=== PATIENT | male | born 1965 | race Caucasian/White ===

== ENCOUNTER 2019-12-30 03:19 | Inpatient (IN) | payer MEDICAID ==
[~2019-12-30] VITALS: Ht 172.7 cm; Wt 86.2 kg
[2019-12-30] MEDS ORDERED: ASPIRIN 81MG TABLET PO NR (05:15)
[2019-12-30 05:35] LABS: BASOPHILS % 1.2 % (0.0-2.0); EOSINOPHILS % 4.2 % (0.0-5.0); HEMATOCRIT. 43.5 % (42.0-52.0); HEMOGLOBIN. 14.8 g/dL (14.0-18.0); LYMPHOCYTES % 27.3 % (20.0-50.0); MEAN CORPUSCULAR HEMOGLOBIN 29.8 pg (28.0-32.0); MEAN CORPUSCULAR VOLUME 87.6 fL (80.0-94.0); MEAN PLATELET VOLUME 6.9 fl (7.4-10.4); MONOCYTES % 7.3 % (2.0-8.0); PLATELET 264 x1000/uL (130-400); RED BLOOD CELL COUNT 4.97 mill/uL (4.7-6.1); RED CELL DISTRIBUTION WIDTH 15.1 % (11.6-14.6)
[2019-12-30] MEDS: NITROGLYCERIN OINT 1GM/INCH UDPKT TD NR ×2 (05:35→07:30)
[2019-12-30 05:39] LABS: CHLORIDE 109 mEq/L (98-107)
[2019-12-30] MEDS ORDERED: ONDANSETRON HCL 4MG/2ML INJ IV ONE (06:30)
[2019-12-30] MEDS ORDERED: MORPHINE SULFATE 4 MG/ML CPJ (NOT FOR IM USE) IV ONE (06:30)
[2019-12-30 11:21] VITALS: BP 108/67
[2019-12-30 12:00] VITALS: BP 106/74
[2019-12-30] MEDS ORDERED: ONDANSETRON HCL 4MG/2ML INJ IV PRN (12:15)
[2019-12-30] MEDS ORDERED: DOCUSATE SODIUM 100MG CAPSULE PO PRN (12:15)
[2019-12-30] MEDS ORDERED: HYDROCODONE/ACETAMINOPHEN 5/325MG TABLET PO PRN (12:15)
[2019-12-30] MEDS ORDERED: IPRATROPIUM/ALBUTEROL 0.5-3(2.5)MG/3ML NEB HHN PRN (12:15)
[2019-12-30] MEDS ORDERED: ACETAMINOPHEN 325MG TABLET PO PRN (12:15)
[2019-12-30] MEDS ORDERED: CLONIDINE 0.1MG TABLET PO PRN (12:15)
[2019-12-30] MEDS ORDERED: LORAZEPAM 0.5MG TABLET PO PRN (12:15)
[2019-12-30 14:46] LABS: *AMPHETAMINES SCREEN URINE PRESUMTIVE POSITIVE (NEGATIVE); *BARBITURATES SCREEN URINE NEGATIVE (NEGATIVE); *BENZODIAZEPINES SCREEN URINE NEGATIVE (NEGATIVE); *COCAINE SCREEN URINE NEGATIVE (NEGATIVE)
[2019-12-30 14:47] LABS: CANNABINOID URINE SCREEN NEGATIVE (NEGATIVE); METHADONE URINE SCREEN NEGATIVE (NEGATIVE); OPIATES URINE SCREEN PRESUMTIVE POSITIVE (NEGATIVE); PHENCYCLIDINE URINE SCREEN NEGATIVE (NEGATIVE)
[2019-12-30 16:01] VITALS: BP 122/87
[2019-12-30] MEDS: MORPHINE SULFATE 2 MG/ML CPJ (NOT FOR IM USE) IV PRN (16:05)
[2019-12-31] VITALS: BP 127/86
[2019-12-31] MEDS: MORPHINE SULFATE 2 MG/ML CPJ (NOT FOR IM USE) IV PRN ×2 (02:45→10:48)
[2019-12-31 04:00] VITALS: BP 107/67
[2019-12-31 06:53] LABS: BASOPHILS % 1.3 % (0.0-2.0); EOSINOPHILS % 4.9 % (0.0-5.0); HEMATOCRIT. 45.7 % (42.0-52.0); HEMOGLOBIN. 15.6 g/dL (14.0-18.0); LYMPHOCYTES % 32.1 % (20.0-50.0); MEAN CORPUSCULAR HEMOGLOBIN 29.8 pg (28.0-32.0); MEAN CORPUSCULAR VOLUME 87.3 fL (80.0-94.0); MEAN PLATELET VOLUME 6.5 fl (7.4-10.4); MONOCYTES % 7.9 % (2.0-8.0); NEUTROPHILS % 53.8 % (40.0-76.0); PLATELET 266 x1000/uL (130-400); RED BLOOD CELL COUNT 5.23 mill/uL (4.7-6.1); RED CELL DISTRIBUTION WIDTH 14.6 % (11.6-14.6)
[2019-12-31 07:11] LABS: CHLORIDE 108 mEq/L (98-107)
[2019-12-31 08:00] VITALS: BP 111/63
[2019-12-31 12:00] VITALS: BP 112/82
[2019-12-31 15:22] VITALS: BP 112/82
== END 2019-12-31 15:00 | disposition home or self-care (01) | DRG 203 ==
LOC: ER 03:19 → 5EST 05:51 → ENRESERV 09:15 → CANRESERV 09:15 → ENRESERV 09:51 → ER 10:26
PROVIDERS: ADMIT Internal Medicine; ATTEND Internal Medicine
DX: M94.0 Chondrocostal junction syndrome [Tietze] (principal); E43 Unspecified severe protein-calorie malnutrition; J44.9 Chronic obstructive pulmonary disease, unspecified; F15.10 Other stimulant abuse, uncomplicated; F11.10 Opioid abuse, uncomplicated; Z79.899 Other long term (current) drug therapy; Z79.1 Long term (current) use of non-steroidal anti-inflammatories (NSAID); Z91.19 Patient's noncompliance with other medical treatment and regimen
CPT/HCPCS: 36415; 71045; 80048; 80053; 80061; 80305; 83036; 83880; 84484; 85025; 85379; 93005; 93306; 99285; J2270; J2405